=== PATIENT | female | born 1985 | race Caucasian/White ===

== ENCOUNTER → 2017-08-31 | Outpatient (CLI) | payer BC ==
[2014-09-23 10:49] VITALS: BP 114/60
--- NOTE | 2017-08-31 12:40 | MRI ---
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 Surveillance examina tion. COMPARISON: Multiple MR brain, most recent previous 07/31/2016. TECHNIQUE: Multiplanar, multisequence MR images of the brain were obtained prior to and following th e uneventful intravenous administration of 16 mL Omniscan. FINDINGS: Pre- and post contrast images of the pituitary/sella demonstrate a normal pituitary bright spot. Nodular structure within the shallow sella measures 5.4 x 3.6 mm (previously 5.7 x 4.0 mm) and is ove rall stable given differences in patient positioning and slice selection. Stable postsurgical changes . The infundibulum is midline. The optic chiasm is normally located. The cavernous ICA segment flow voi ds are normal. The cavernous sinuses are normal in appearance. Meckel's caves are normal. The clivus is normal in appearance. There is no evidence of diffusion restriction. The craniocervical junction is normal. Normal signal c haracteristics and morphology are demonstrated within the cerebral cortex, subcortical white matter, corpus callosum, deep bui nuclei, brainstem and cerebellum. The major vascular channels opacify norm ally and the major vascular flow voids, to include the dural venous sinuses, are intact. The ventricu lar system is normal in size and morphology. The basilar cisterns are normal. The orbits and globes are within normal limits. Mild mucosal thickening of the ethmoid labyrinth and right maxillary sinus with the remaining paranasal sinuses, mastoid air cells and tympanic cavities clear. IMPRESSION: 1. Overall stable postsurgical changes of the sella with no discrete mass appreciated. 2. Otherwise normal MRI of the brain. 3. Pattern of mucosal thickening within the paranasal sinuses as described. Reported By:
== END ==
LOC: RAD 10:21
PROVIDERS: ATTEND Internal Medicine
DX: E24.0 Pituitary-dependent Cushing's disease (principal)
CPT/HCPCS: 70553

== ENCOUNTER 2021-06-12 19:28 | Observation (INO) ==
[2021-06-12] MEDS ORDERED: NS 1000 ML 1,000 ML IV ONE (21:06)
[2021-06-12] MEDS ORDERED: ZOFRAN INJ 4 MG VIAL IVP PRN (21:07)
[2021-06-12] MEDS ORDERED: PHENERGAN INJ 25 MG IM PRN (21:07)
[2021-06-12] MEDS ORDERED: PEPCID 20 MG IV PREMIX* 20 MG/50 ML BAG IV SCH (22:00)
[2021-06-12 22:46] LABS: BASOPHILS % (AUTO) 0.5 % (0.2-1.0); HEMATOCRIT 47.4 % (36.0-47.0); LYMPHOCYTES # (AUTO) 2.2 X10^3/uL (1.3-2.9); LYMPHOCYTES % (AUTO) 30.7 % (21.0-51.0); MEAN CORPUSCULAR HEMOGLOBIN 29.1 pg (27.0-34.0); MEAN CORPUSCULAR HGB CONC 35.9 g/dL (33.0-35.0); MEAN CORPUSCULAR VOLUME 81.1 fL (80.0-100.0); MEAN PLATELET VOLUME 7.9 fL (7.4-11.0); MONOCYTES # (AUTO) 0.6 x10^3/uL (0.3-0.8); MONOCYTES % (AUTO) 8.8 % (0.0-13.0); NEUTROPHILS # (AUTO) 4.4 x10^3/uL (2.2-4.8); PLATELET COUNT 320 X10^3/uL (150.0-450.0); RED BLOOD COUNT 5.85 X10^6/uL (3.5-5.4); RED CELL DISTRIBUTION WIDTH 13.4 % (11.6-16.5); WHITE BLOOD COUNT 7.3 X10^3/uL (3.6-10.0)
[2021-06-12 22:54] LABS: ALANINE AMINOTRANSFERASE 28 Units/L (12-78); ALBUMIN 3.4 g/dL (3.4-5.0); ALKALINE PHOSPHATASE 78 Units/L (46-116); AMYLASE 109 Units/L (25-115); ASPARTATE AMINO TRANSFERASE 39 Units/L (15-37); BLOOD UREA NITROGEN 19 mg/dL (7-18); CALCIUM 8.2 mg/dL (8.5-10.1); CARBON DIOXIDE 20.2 mmol/L (21-32); CHLORIDE 96 mmol/L (98-107); COR NA(FOR HYPERGLY) 132 mmol/L (136-145); LIPASE 619 Units/L (73-393); SODIUM 131 mmol/L (136-145); TOTAL PROTEIN 8.3 g/dL (6.4-8.2); eGFR NON BLACK RACES 39 (>60)
[2021-06-12 23:51] VITALS: BMI 25.7
[2021-06-13] MEDS ORDERED: PROTONIX INJ 40 MG VIAL ONE ×2 (00:55→09:42)
[2021-06-13] MEDS: PROTONIX INJ 40 MG VIAL IVP SCH ×3 (01:00→21:00)
[2021-06-13] MEDS: NS 1000 ML 1,000 ML IV SCH ×3 (01:32→09:54)
[2021-06-13] MEDS: SOLU-Medrol 40 MG VIAL IVP SCH ×4 (01:32→22:54)
[2021-06-13 02:07] LABS: BILIRUBIN,URINE NEGATIVE (NEGATIVE); BLOOD/HEMOGLOBIN,URINE 5+ (NEGATIVE); GLUCOSE, URINE NEGATIVE (NEGATIVE); KETONES,URINE 1+ (NEGATIVE); LEUKOCYTE ESTERASE ,URINE 1+ (NEGATIVE); NITRITES,URINE NEGATIVE (NEGATIVE); PROTEIN,URINE 3+ (NEGATIVE); UROBILINOGEN,URINE NORMAL (NORMAL)
[2021-06-13 02:13] LABS: APPEARANCE,URINE CLEAR (CLEAR); BACTERIA,URINE TRACE /HPF (NEGATIVE); COLOR,URINE YELLOW (YELLOW); HYALINE CASTS, URINE FEW /LPF (NEGATIVE); SQUAMOUS EPITHELIAL CELL,UR NEGATIVE /HPF (NEGATIVE)
--- NOTE | 2021-06-13 06:24 | RAD ---
HISTORYNausea and vomitingSTUDYKUBCOMPARISONNoneFINDINGSIntestinal gas pattern unremarkable. There is no evidence for i leus, obstruction, mass or visceral enlargement. Surgical clips right upper quadrant. The lung bases are clear.IMPRESSIONNo acute or significant abdominal abnormality noted. Right upper quadrant surgica l clips consistent with cholecystectomy.Electronically signed by: SARA MORTON (Jun 13, 2021 06:23: 01)
[2021-06-13 07:03] LABS: BASOPHILS % (AUTO) 0.3 % (0.2-1.0); HEMATOCRIT 41.5 % (36.0-47.0); HEMOGLOBIN 14.9 g/dL (12.0-16.0); LYMPHOCYTES % (AUTO) 20.8 % (21.0-51.0); MEAN CORPUSCULAR HEMOGLOBIN 29.1 pg (27.0-34.0); MEAN CORPUSCULAR HGB CONC 36.1 g/dL (33.0-35.0); MEAN CORPUSCULAR VOLUME 80.7 fL (80.0-100.0); MEAN PLATELET VOLUME 8.1 fL (7.4-11.0); MONOCYTES # (AUTO) 0.3 x10^3/uL (0.3-0.8); NEUTROPHILS # (AUTO) 3.3 x10^3/uL (2.2-4.8); NEUTROPHILS % (AUTO) 71.9 % (42.0-75.0); PLATELET COUNT 252 X10^3/uL (150.0-450.0); RED BLOOD COUNT 5.14 X10^6/uL (3.5-5.4); RED CELL DISTRIBUTION WIDTH 13.4 % (11.6-16.5); WHITE BLOOD COUNT 4.6 X10^3/uL (3.6-10.0)
[2021-06-13 07:35] LABS: ALBUMIN 2.9 g/dL (3.4-5.0); CALCIUM 7.8 mg/dL (8.5-10.1); CARBON DIOXIDE 17.6 mmol/L (21-32); COR CA(FOR HYPOALB) 8.7 mg/dL (8.5-10.1); CREATININE 1.29 mg/dL (0.55-1.02); TOTAL PROTEIN 7.1 g/dL (6.4-8.2)
[2021-06-13] MEDS ORDERED: KLOR-CON PO PRN (08:19)
[2021-06-13] MEDS ORDERED: K-RIDER 10 MEQ/NS 100 ML 10 MEQ/100 ML BAG IV PRN (08:19)
[2021-06-13] MEDS ORDERED: POTASSIUM CHLORIDE LIQ 20 MEQ UDC PO PRN (08:19)
[2021-06-13] MEDS ORDERED: POTASSIUM CHL 60 MEQ/NS 0.45% 500 ML IV PRN (08:19)
[2021-06-13] MEDS ORDERED: POTASSIUM CHL 40 MEQ/NS 0.45% 500 ML IV PRN (08:19)
[2021-06-13] MEDS ORDERED: MICRO K EXTEN CAP 10 MEQ PO PRN (08:19)
[2021-06-13] MEDS: K-DUR TAB 20 MEQ PO PRN (09:50)
--- NOTE | 2021-06-13 11:01 | DR.H&P ---
H&P - History & Physical for Day of: H&P Date: 06/12/21 - Chief Complaint Chief Complaint: NAUSEA, VOMITING, DIARRHEA - History of Present Illness History of Present Illness: IS A 35 YEAR OLD PATIENT OF OURS. SHE WAS A DIRECT ADMISSION TO THE HOSPITAL DUE TO COMPLAINTS OF NAUSEA, VOMITING, AND DIARRHEA FOR THE PAST 5 DAYS. PATIENT REPORTS THAT SHE IS UNABLE TO HOLD DOWN ANY FOOD OR LIQUIDS. SHE ADMITS TO AN INCREASE IN WEAKNESS, GENERALIZED BODY ACHES, AND FEVER. SHE DID RECEIVE OUTPATIENT FLUIDS IN THE OFFICE ON SUNDAY. SHE HAS ALSO BEEN TAKING ZOFRAN BY MOUTH AND PHENERGAN SUPPOSITORIES WITHOUT IMPROVEMENT IN SYMPTOMS. HER PMH INCLUDES: HYPOTHYROIDISM, ADDISONS DISEASE, CHOLECYSTECTOMY, AND REMOVAL OF PITUITARY TUMOR AT AGE 11. ON ARRIVAL TO THE HOSPITAL, VITALS WERE 98.9-106-18-99%-94/58. LABS WERE OBTAINED. ABNORMAL LAB VALUES INCLUDE THE FOLLOWING: RBC 5.85, HGB 17.0, HCT 47.4, SODIUM 131, POTASSIUM 3.3, CHLORIDE 96, CARBON DIOXIDE 20.2, BUN 19, CREATININE 1.60, GLUCOSE 130, CALCIUM 8.2, AST 39, CRP 83.60, TOTAL PROTEIN 8.3, GLOBULIN 4.9, LIPASE 619. URINALYSIS WAS OBTAINED AND REVEALED: WBC 0-2, RBC 3-5, LEUKOCYTES 1+, BACTERIA TRACE, OCCULT BLOOD 5+. A URINE CULTURE WAS SET UP. COVID-19 NEGATIVE. A KUB WAS OBTAINED AND REVEALED: No acute or significant abdominal abnormality noted. Right upper quadrant surgical clips consistent with cholecystectomy. WE PLANNED TO ADMINISTER (TWO) ONE LITER NORMAL SALINE BOLUSES, THEN NORMAL SALINE AT 150ML/HR. WE WILL ALSO START PEPCID 20MG IV BID, PROTONIX 40MG IV BID, ZOFRAN 4MG IV Q4H PRN, PHENERGAN 25MG IM Q6H PRN, SOLU- MEDROL 80MG IV Q8H, AND THE POTASSIUM PROTOCOL. WE WILL OBTAIN STOOL STUDIES. OTHERWISE, WE PLAN TO FOLLOW UP WITH AM LABS AND CONTINUE TO MONITOR. TIME SPENT ON CLINICAL ASSESSMENT, REVIEWING LABS AND IMAGING, DECISION MAKING, AND DOCUMENTATION GREATER THAN 75 MINUTES. - Past Medical History Past Medical History: Hypothyroidism Additional Medical History: ADDISONS DISEASE - Past Surgical History Surgical History: , Cholecystectomy Additional Surgical History: PITUITARY TUMOR REMOVED AT 11 - Family History Family Medical History: Hypertension - Social History Does patient currently use any type of tobacco product: No Have you used tobacco products in the last 12 months: No Type of Tobacco Use: None Does any household member use tobacco: No Alcohol Use: None Drug Use: None - Medications Home Medications: No Known Drug Allergies Allergy (Verified 06/13/21 10:24) - Review of Systems Constitutional: See HPI, Fever, Chills, Weakness Eyes: No Symptoms Reported ENT: No Symptoms Reported Respiratory: No Symptoms Reported Cardiovascular: No Symptoms Reported Gastrointestinal: Nausea, Vomiting, Diarrhea Genitourinary: No Symptoms Reported Musculoskeletal: No Symptoms Reported Skin: No Symptoms Reported Neurological: Weakness - Physical Exam Vital Signs: Temperature 98.6 F Pulse Rate [Left Radial] 83 Respiratory Rate 18 Blood Pressure [Right Arm] 106/61 Blood Pressure 114/60 O2 Sat by Pulse Oximetry 100 Oriented: Normal Eyes: Normal Ear: Normal Nose: Normal Throat: Normal Respiratory: Diminished Throughout Cardiovascular: Tachycardia : Normal Auscultation: Bowel Sounds: Normal Palpation: Normal Tenderness: Diffuse, Mild Skin: Decreased Turgur Musculoskeletal: Normal Psychiatric: Normal Mood Description: Calm Affect: Normal Speech Pattern: Clear - Assessment/Plan (1) Gastroenteritis Status: Acute Plan: ADMIT, (TWO) ONE LITER NORMAL SALINE BOLUSES, THEN NORMAL SALINE AT 150ML/HR. WE WILL ALSO START PEPCID 20MG IV BID, PROTONIX 40MG IV BID, ZOFRAN 4MG IV Q4H PRN, PHENERGAN 25MG IM Q6H PRN, SOLU-MEDROL 80MG IV Q8H, AND THE POTASSIUM PROTOCOL (2) Intractable nausea and vomiting Status: Acute (3) Hypokalemia Status: Acute - Allergies Allergies/Adverse Reactions: Allergies Allergy/AdvReac Type Severity Reaction Status Date / Time No Known Drug Allergies Allergy Verified 06/13/21 10:24
[2021-06-13] MEDS: CIPRO IV 400 MG PREMIX* 400 MG/200 ML IV.SOLN. IV SCH ×2 (17:06→22:50)
[2021-06-13] MEDS ORDERED: PEPCID 20 MG IV PREMIX* 20 MG/50 ML BAG IV SCH (21:00)
[2021-06-14] MEDS: NS 1000 ML 1,000 ML IV SCH ×3 (02:02→08:04)
[2021-06-14] MEDS: SOLU-Medrol 40 MG VIAL IVP SCH (05:27)
[2021-06-14 06:17] LABS: BASOPHILS % (AUTO) 0.1 % (0.2-1.0); HEMATOCRIT 33.9 % (36.0-47.0); HEMOGLOBIN 12.2 g/dL (12.0-16.0); LYMPHOCYTES # (AUTO) 1.4 X10^3/uL (1.3-2.9); LYMPHOCYTES % (AUTO) 18.8 % (21.0-51.0); MEAN CORPUSCULAR HEMOGLOBIN 29.5 pg (27.0-34.0); MEAN CORPUSCULAR VOLUME 81.9 fL (80.0-100.0); MEAN PLATELET VOLUME 7.8 fL (7.4-11.0); MONOCYTES # (AUTO) 0.5 x10^3/uL (0.3-0.8); MONOCYTES % (AUTO) 7.1 % (0.0-13.0); NEUTROPHILS # (AUTO) 5.7 x10^3/uL (2.2-4.8); PLATELET COUNT 219 X10^3/uL (150.0-450.0); RED BLOOD COUNT 4.14 X10^6/uL (3.5-5.4); RED CELL DISTRIBUTION WIDTH 13.7 % (11.6-16.5); WHITE BLOOD COUNT 7.6 X10^3/uL (3.6-10.0)
[2021-06-14 06:39] LABS: ALANINE AMINOTRANSFERASE 32 Units/L (12-78); ALBUMIN 2.6 g/dL (3.4-5.0); ALKALINE PHOSPHATASE 56 Units/L (46-116); ASPARTATE AMINO TRANSFERASE 34 Units/L (15-37); BLOOD UREA NITROGEN 10 mg/dL (7-18); CALCIUM 7.2 mg/dL (8.5-10.1); CARBON DIOXIDE 22.2 mmol/L (21-32); CHLORIDE 111 mmol/L (98-107); COR CA(FOR HYPOALB) 8.3 mg/dL (8.5-10.1); COR NA(FOR HYPERGLY) 145 mmol/L (136-145); CREATININE 1.04 mg/dL (0.55-1.02); SODIUM 144 mmol/L (136-145); TOTAL PROTEIN 6.1 g/dL (6.4-8.2); eGFR NON BLACK RACES > 60 (>60)
[2021-06-14] MEDS: PROTONIX INJ 40 MG VIAL IVP SCH (08:04)
[2021-06-14] MEDS: K-DUR TAB 20 MEQ PO PRN (08:06)
[2021-06-14] MEDS: CIPRO IV 400 MG PREMIX* 400 MG/200 ML IV.SOLN. IV SCH (08:13)
[2021-06-14 11:02] LABS: CRYPTOSPORIDIUM PARVUM ANTIGEN NEGATIVE (NEGATIVE); GIARDIA LAMBLIA ANTIGEN NEGATIVE (NEGATIVE)
[2021-06-14 12:58] VITALS: BP 119/57
== END 2021-06-14 13:50 | disposition home or self-care (01) ==
LOC: OBS
PROVIDERS: ADMIT Internal Medicine; ATTEND Internal Medicine
DX: E27.1 Primary adrenocortical insufficiency; K52.9 Noninfective gastroenteritis and colitis, unspecified; E87.6 Hypokalemia